=== PATIENT | female | born 1940 | race Caucasian/White ===

== ENCOUNTER → 2017-05-01 | Outpatient (CLI) | payer MEDICARE, MEDICAID | END | disposition home or self-care (01) | LOC: CARD 08:26 | PROVIDERS: ATTEND Psychiatry & Neurology Neurology | DX: I69.911 Memory deficit following unspecified cerebrovascular disease (principal) ==

== ENCOUNTER 2020-10-05 06:11 | Emergency (ER) | payer MEDICARE, MEDICAID ==
[~2020-10-05] VITALS: Ht 157.5 cm; Wt 43.1 kg
[2020-10-05 07:02] LABS: BASOPHILS % 0.2 % (0.0-2.0); EOSINOPHILS % 0.1 % (0.0-5.0); HEMATOCRIT. 41.3 % (36.0-48.0); HEMOGLOBIN. 14.2 g/dL (12.0-16.0); LYMPHOCYTES % 21.3 % (20.0-50.0); MEAN CORPUSCULAR HEMOGLOBIN 32.6 pg (28.0-32.0); MEAN CORPUSCULAR VOLUME 94.8 fL (81.0-99.0); MEAN PLATELET VOLUME 9.1 fl (7.4-10.4); MONOCYTES % 6.7 % (2.0-8.0); NEUTROPHILS % 71.7 % (40.0-76.0); PLATELET 265 x1000/uL (130-400); RED BLOOD CELL COUNT 4.36 mill/uL (4.2-5.4); RED CELL DISTRIBUTION WIDTH 13.3 % (11.6-14.6)
[2020-10-05 07:06] LABS: CHLORIDE 107 mEq/L (98-107)
[2020-10-05 08:50] LABS: INR 1.1; PROTHROMBIN TIME 11.8 sec (9.6-11.0)
[2020-10-05 11:45] VITALS: BP 162/91
== END 2020-10-05 11:48 | disposition home or self-care (01) ==
LOC: ER 06:11
DX: Z00.00 Encounter for general adult medical examination without abnormal findings (principal); F03.90 Unspecified dementia, unspecified severity, without behavioral disturbance, psychotic disturbance, mood disturbance, and anxiety; I10 Essential (primary) hypertension; Z88.6 Allergy status to analgesic agent
CPT/HCPCS: 36415; 80053; 85025; 99283

== ENCOUNTER 2020-10-22 12:09 | Inpatient (IN) | payer MEDICARE, MEDICAID ==
[~2020-10-22] VITALS: Ht 167.6 cm; Wt 59.9 kg
[2020-10-22 13:41] LABS: BASOPHILS % 0.5 % (0.0-2.0); EOSINOPHILS % 0.8 % (0.0-5.0); HEMATOCRIT. 39.5 % (36.0-48.0); HEMOGLOBIN. 13.8 g/dL (12.0-16.0); LYMPHOCYTES % 26.8 % (20.0-50.0); MEAN CORPUSCULAR HEMOGLOBIN 32.6 pg (28.0-32.0); MEAN CORPUSCULAR VOLUME 93.4 fL (81.0-99.0); MEAN PLATELET VOLUME 9.2 fl (7.4-10.4); MONOCYTES % 7.2 % (2.0-8.0); NEUTROPHILS % 64.7 % (40.0-76.0); PLATELET 258 x1000/uL (130-400); RED BLOOD CELL COUNT 4.23 mill/uL (4.2-5.4); RED CELL DISTRIBUTION WIDTH 12.6 % (11.6-14.6)
[2020-10-22 13:44] LABS: CHLORIDE 106 mEq/L (98-107)
[2020-10-22 13:46] LABS: INR 1.1; PROTHROMBIN TIME 11.4 sec (9.6-11.0)
[2020-10-22 13:50] LABS: ETHANOL BLOOD < 10 mg/dL
[2020-10-22 16:19] LABS: CLARITY URINE CLEAR (CLEAR); COLOR URINE YELLOW (YELLOW); KETONES URINE NEGATIVE (NEGATIVE); LEUKOCYTE ESTERASE URINE 1+ (NEGATIVE); NITRITE URINE NEGATIVE (NEGATIVE); OCCULT BLOOD URINE NEGATIVE (NEGATIVE); PROTEIN URINE NEGATIVE (NEGATIVE); UROBILINOGEN URINE 0.2 E.U./dL (0.2-1.0)
[2020-10-22 16:31] LABS: *AMPHETAMINES SCREEN URINE NEGATIVE (NEGATIVE); *BARBITURATES SCREEN URINE NEGATIVE (NEGATIVE); *BENZODIAZEPINES SCREEN URINE NEGATIVE (NEGATIVE); *COCAINE SCREEN URINE NEGATIVE (NEGATIVE)
[2020-10-22 16:32] LABS: CANNABINOID URINE SCREEN NEGATIVE (NEGATIVE); METHADONE URINE SCREEN NEGATIVE (NEGATIVE); OPIATES URINE SCREEN NEGATIVE (NEGATIVE); PHENCYCLIDINE URINE SCREEN NEGATIVE (NEGATIVE)
[2020-10-22] MEDS ORDERED: ACETAMINOPHEN 325MG TABLET PO PRN (22:45)
[2020-10-22] MEDS ORDERED: ONDANSETRON HCL 4MG/2ML INJ IV PRN (22:45)
[2020-10-22] MEDS ORDERED: CLONIDINE 0.1MG TABLET PO PRN (22:45)
[2020-10-22] MEDS ORDERED: DOCUSATE SODIUM 100MG CAPSULE PO PRN (22:45)
[2020-10-23] VITALS (8 sets, daily range): BP systolic 116–168; BP diastolic 71–94
[2020-10-23 06:03] LABS: CHLORIDE 104 mEq/L (98-107)
[2020-10-23 06:14] LABS: LDL CHOLESTEROL 143 mg/dL (5-100)
[2020-10-23 06:15] LABS: HDL CHOLESTEROL 72 mg/dL (40-59)
[2020-10-23 06:16] LABS: T4 FREE 1.17 ng/dL (0.76-1.46)
[2020-10-23 06:22] LABS: BASOPHILS % 0.3 % (0.0-2.0); EOSINOPHILS % 0.3 % (0.0-5.0); HEMATOCRIT. 42.6 % (36.0-48.0); HEMOGLOBIN. 14.7 g/dL (12.0-16.0); LYMPHOCYTES % 25.1 % (20.0-50.0); MEAN CORPUSCULAR HEMOGLOBIN 32.6 pg (28.0-32.0); MEAN CORPUSCULAR VOLUME 94.5 fL (81.0-99.0); MEAN PLATELET VOLUME 9.5 fl (7.4-10.4); MONOCYTES % 6.4 % (2.0-8.0); NEUTROPHILS % 67.9 % (40.0-76.0); PLATELET 284 x1000/uL (130-400); RED CELL DISTRIBUTION WIDTH 12.9 % (11.6-14.6)
[2020-10-23] MEDS: ASPIRIN 81MG EC TABLET PO SCH (09:23)
[2020-10-23] MEDS ORDERED: BISACODYL 10MG SUPP PR PRN (11:30)
[2020-10-23] MEDS ORDERED: HYDRALAZINE 10 MG in SODIUM CHLORIDE 0.9% 49.5 ML IV PRN (11:30)
[2020-10-23] MEDS ORDERED: IPRATROPIUM/ALBUTEROL 0.5-3(2.5)MG/3ML NEB HHN PRN (11:30)
[2020-10-23] MEDS ORDERED: POTASSIUM CHLORIDE INJ 40 MEQ in DEXT 5% WATER 250 ML IV NR (13:00)
[2020-10-23] MEDS: ENOXAPARIN 40MG/0.4ML SYR SUBCUT SCH (13:57)
[2020-10-23] MEDS: FAMOTIDINE 20MG/2ML VIAL IV SCH (13:57)
[2020-10-23] MEDS: DEXT 5%/0.45% NACL 1000ML 1,000 ML IV SCH (13:59)
[2020-10-23] MEDS: LORAZEPAM 2MG/ML CPJ IV PRN (14:28)
[2020-10-23] MEDS: QUETIAPINE FUMARATE 25MG TABLET PO SCH (16:15)
[2020-10-23] MEDS: ATORVASTATIN CALCIUM 20MG TABLET PO SCH (21:00)
[2020-10-24] VITALS: BP 121/78
[2020-10-24 04:00] VITALS: BP 113/62
[2020-10-24] MEDS: DEXT 5%/0.45% NACL 1000ML 1,000 ML IV SCH (06:33)
[2020-10-24 08:00] VITALS: BP 106/80
[2020-10-24] MEDS: QUETIAPINE FUMARATE 25MG TABLET PO SCH (09:16)
[2020-10-24] MEDS: FAMOTIDINE 20MG/2ML VIAL IV SCH (09:16)
[2020-10-24] MEDS: ASPIRIN 81MG EC TABLET PO SCH (09:16)
[2020-10-24 12:00] VITALS: BP 131/80
[2020-10-24] MEDS: ENOXAPARIN 40MG/0.4ML SYR SUBCUT SCH (13:02)
[2020-10-24] MEDS: LORAZEPAM 2MG/ML CPJ IV PRN (13:02)
[2020-10-24 16:00] VITALS: BP 130/67
[2020-10-24 20:00] VITALS: BP 128/69
[2020-10-25] VITALS (7 sets, daily range): BP systolic 118–169; BP diastolic 76–88
[2020-10-25] MEDS: LORAZEPAM 2MG/ML CPJ IV PRN ×2 (04:23→10:46)
[2020-10-25] MEDS: ATORVASTATIN CALCIUM 20MG TABLET PO SCH ×2 (04:27→21:58)
[2020-10-25] MEDS: ASPIRIN 81MG EC TABLET PO SCH (08:19)
[2020-10-25] MEDS: FAMOTIDINE 20MG/2ML VIAL IV SCH (08:19)
[2020-10-25] MEDS: QUETIAPINE FUMARATE 25MG TABLET PO SCH (08:20)
[2020-10-25] MEDS ORDERED: POTASSIUM CHLORIDE 20MEQ TABLET SR PO ONE (11:30)
[2020-10-25 12:56] LABS: BASOPHILS % 0.3 % (0.0-2.0); CHLORIDE 112 mEq/L (98-107); EOSINOPHILS % 1.7 % (0.0-5.0); HEMOGLOBIN. 13.8 g/dL (12.0-16.0); LYMPHOCYTES % 29.4 % (20.0-50.0); MEAN CORPUSCULAR HEMOGLOBIN 32.8 pg (28.0-32.0); MEAN CORPUSCULAR VOLUME 95.3 fL (81.0-99.0); MEAN PLATELET VOLUME 9.7 fl (7.4-10.4); MONOCYTES % 7.3 % (2.0-8.0); NEUTROPHILS % 61.3 % (40.0-76.0); PLATELET 219 x1000/uL (130-400); RED CELL DISTRIBUTION WIDTH 12.8 % (11.6-14.6)
[2020-10-25] MEDS ORDERED: LISI20TA31 PO (13:21)
[2020-10-25] MEDS ORDERED: SIMV-46 PO (13:22)
[2020-10-25] MEDS ORDERED: HYDR25TA PO (13:22)
[2020-10-25] MEDS ORDERED: DONE10TA43 PO (13:23)
[2020-10-25] MEDS ORDERED: METF-416 PO (13:27)
[2020-10-25] MEDS ORDERED: SITA100T11 PO (13:28)
[2020-10-25] MEDS ORDERED: ASPI-1406 PO (13:29)
[2020-10-25] MEDS: ENOXAPARIN 40MG/0.4ML SYR SUBCUT SCH (13:45)
[2020-10-25] MEDS: DEXT 5%/0.45% NACL 1000ML 1,000 ML IV SCH (13:54)
[2020-10-25] MEDS: DONEPEZIL HCL 10MG TABLET PO SCH (16:02)
[2020-10-25] MEDS: LISINOPRIL 20MG TABLET PO SCH (16:02)
[2020-10-25] MEDS ORDERED: ATORVASTATIN CALCIUM 20MG TABLET PO SCH (21:00)
[2020-10-25] MEDS ORDERED: MEDICATION NOT ON FORMULARY EA (Simvastatin 1 TAB) PO SCH (21:00)
[2020-10-26] VITALS: BP 142/79
[2020-10-26] MEDS: LORAZEPAM 2MG/ML CPJ IV PRN (03:12)
[2020-10-26] MEDS: DEXT 5%/0.45% NACL 1000ML 1,000 ML IV SCH (03:20)
[2020-10-26 04:00] VITALS: BP 149/77
[2020-10-26 08:00] VITALS: BP 188/82
[2020-10-26] MEDS: DONEPEZIL HCL 10MG TABLET PO SCH (08:14)
[2020-10-26] MEDS: QUETIAPINE FUMARATE 25MG TABLET PO SCH (08:14)
[2020-10-26] MEDS: ASPIRIN 81MG EC TABLET PO SCH (08:14)
[2020-10-26] MEDS: FAMOTIDINE 20MG/2ML VIAL IV SCH (08:14)
[2020-10-26] MEDS: LISINOPRIL 20MG TABLET PO SCH (08:15)
[2020-10-26 12:00] VITALS: BP 123/59
[2020-10-26] MEDS: ENOXAPARIN 40MG/0.4ML SYR SUBCUT SCH (12:52)
[2020-10-26 16:00] VITALS: BP 120/66
[2020-10-26 16:51] VITALS: BP 120/66
== END 2020-10-26 18:12 | disposition hospice, inpatient (51) | DRG 71 ==
LOC: ER 12:36 → 6EST 17:40 → ENRESERV 19:37 → 6EST 10-24 23:33
PROVIDERS: ADMIT Internal Medicine; ATTEND Internal Medicine
DX: G93.41 Metabolic encephalopathy (principal); N39.0 Urinary tract infection, site not specified; F03.90 Unspecified dementia, unspecified severity, without behavioral disturbance, psychotic disturbance, mood disturbance, and anxiety; E87.6 Hypokalemia; E78.5 Hyperlipidemia, unspecified; I10 Essential (primary) hypertension; Z20.822 Contact with and (suspected) exposure to COVID-19; Z86.73 Personal history of transient ischemic attack (TIA), and cerebral infarction without residual deficits; Z78.1 Physical restraint status; Z79.84 Long term (current) use of oral hypoglycemic drugs; Z79.899 Other long term (current) drug therapy; Z88.5 Allergy status to narcotic agent
CPT/HCPCS: 36415; 71045; 80053; 80061; 80305; 80307; 80320; 80329; 81003; 82140; 82550; 82553; 82962; 83605; 84439; 84443; 84484; 85025; 86592; 87426; 92610; 93005; 97162; 97530; 99285; J1650; J2060; J3480; J3490; J7060; G0480